=== PATIENT | male | born 1970 | race Caucasian/White ===

== ENCOUNTER 2017-09-17 08:55 | Emergency (ER) | payer SELFPAY ==
[~2017-09-17] VITALS: Ht 175.3 cm; Wt 128.0 kg
[2017-09-17 08:57] VITALS: BP 162/84
== END 2017-09-17 11:46 | disposition home or self-care (01) ==
LOC: ER 09:24
DX: Z48.00 Encounter for change or removal of nonsurgical wound dressing (principal)
CPT/HCPCS: 99283; Z7610

== ENCOUNTER 2017-09-19 14:11 | Emergency (ER) | payer SELFPAY ==
[~2017-09-19] VITALS: Ht 175.3 cm; Wt 127.0 kg
[2017-09-19 14:18] VITALS: BP 168/122
== END 2017-09-19 17:05 | disposition home or self-care (01) ==
LOC: ER 15:17
DX: L02.11 Cutaneous abscess of neck (principal)
CPT/HCPCS: 99283

== ENCOUNTER 2020-11-04 07:43 | Emergency (ER) | payer OTHER ==
[~2020-11-04] VITALS: Ht 177.8 cm; Wt 118.0 kg
[2020-11-04] MEDS ORDERED: CEPH500C2 MT (08:43)
[2020-11-04 08:56] VITALS: BP 130/78
== END 2020-11-04 08:56 | disposition home or self-care (01) ==
LOC: ER 07:43
DX: L02.212 Cutaneous abscess of back [any part, except buttock and flank] (principal); E11.9 Type 2 diabetes mellitus without complications
CPT/HCPCS: 99283; A4217; Z7610

== ENCOUNTER 2022-04-21 15:06 | Emergency (ER) | payer OTHER ==
[~2022-04-21] VITALS: Ht 165.1 cm; Wt 120.0 kg
[~2022-04-21 15:06] MED LIST: CEPH500C2 MT
[2022-04-21 17:36] LABS: BASOPHILS % 0.5 % (0.0-2.0); EOSINOPHILS % 1.8 % (0.0-5.0); HEMOGLOBIN. 15.6 g/dL (14.0-18.0); LYMPHOCYTES % 32.9 % (20.0-50.0); MEAN CORPUSCULAR HEMOGLOBIN 29.3 pg (28.0-32.0); MEAN CORPUSCULAR VOLUME 86.6 fL (80.0-94.0); MEAN PLATELET VOLUME 8.4 fl (7.4-10.4); MONOCYTES % 6.3 % (2.0-8.0); NEUTROPHILS % 58.5 % (40.0-76.0); PLATELET 231 x1000/uL (130-400); RED BLOOD CELL COUNT 5.31 mill/uL (4.7-6.1); RED CELL DISTRIBUTION WIDTH 13.5 % (11.6-14.6)
[2022-04-21 17:44] LABS: CHLORIDE 104 mEq/L (98-107)
[2022-04-21] MEDS ORDERED: MUPI15CR11 TP (17:55)
[2022-04-21] MEDS ORDERED: CEPH500T MT (17:55)
[2022-04-21 18:29] VITALS: BP 137/64
== END 2022-04-21 18:33 | disposition home or self-care (01) ==
LOC: ER 15:06
DX: E11.621 Type 2 diabetes mellitus with foot ulcer (principal); E11.65 Type 2 diabetes mellitus with hyperglycemia; I10 Essential (primary) hypertension
CPT/HCPCS: 36415; 73630; 80053; 85025; 99284